=== PATIENT | female | born 1980 | race Two or more races ===

== ENCOUNTER 2020-03-27 08:49 | Emergency (ER) | payer SELFPAY ==
[~2020-03-27] VITALS: Ht 157.5 cm; Wt 64.0 kg
--- NOTE | 2020-03-27 09:36 | PHYS DOC ---
Past Medical History Past Medical History: No Pertinent History Past Surgical History: No Surgical History Smoking Status: Never Smoker General Adult EDM: Chief Complaint: VAGINAL BLEEDING HPI: HPI: Patient is a 39 year old G5, P4 female with last menstrual period about 9 weeks ago presents with light vaginal bleeding began yesterday and picked up more heavily today large amount of clots. Patient describes lower abdominal pain and cramping radiating to the back. No urinary complaints. No fevers no chills no vomiting no diarrhea. Pain is moderate in nature with no factors to make it worse or better. Review of Systems: Review of Systems: Constitutional: Denies fever or chills Eyes: Denies change in visual acuity HENT: Denies sore throat Respiratory: Denies cough or shortness of breath Cardiovascular: Denies chest pain or edema GI: Complains of lower abdominal pain but no vomiting or diarrhea : Denies dysuria but complains of vaginal bleeding with clots Musculoskeletal: Complains of lower back pain Integument: Denies rash Neurologic: Denies headache or focal weakness Psychiatric: Denies depression or anxiety Heart Score: Risk Factors: Risk Factors: DM, Current or recent (<one month) smoker, HTN, HLP, family history of CAD, obesity. Risk Scores: Score 0 - 3: 2.5% MACE over next 6 weeks - Discharge Home Score 4 - 6: 20.3% MACE over next 6 weeks - Admit for Clinical Observation Score 7 - 10: 72.7% MACE over next 6 weeks - Early Invasive Strategies Physical Exam: PE: Constitutional: Well developed, well nourished, no acute distress, non-toxic appearance. [] HENT: Normocephalic, atraumatic, bilateral external ears normal, no trismus, nose normal. [] Eyes: PERRLA, EOMI, conjunctiva normal, no discharge. [] Neck: Normal range of motion, no tenderness, supple, no stridor. [] Cardiovascular:Heart rate regular rhythm, Lungs & Thorax: No respiratory distress Abdomen: , soft, tender to palpate in the lower abdomen no masses, no pulsatile masses. [] exam: Diet Tech present moderate amount of bleeding with clots and what appears to be tissue. Cervix open Skin: Warm, dry, no erythema, no rash. [] Back: No tenderness, no CVA tenderness. [] Extremities: No tenderness, no cyanosis, no clubbing, ROM intact, no edema. [] Neurologic: Alert and oriented X 3, normal motor function, normal sensory function, no focal deficits noted. [] Psychologic: Affect normal, judgement normal, mood normal. [] Current Patient Data: Labs: Laboratory Tests Test 03/27/20 09:35 03/27/20 09:48 Urine Collection Type Unknown Urine Color Yellow Urine Clarity Clear Urine pH 6.5 Urine Specific [place] 1.020 Urine Protein Negative mg/dL Urine Glucose (UA) Negative mg/dL Urine Ketones (Stick) Negative mg/dL Urine Blood Negative Urine Nitrite Negative Urine Bilirubin Negative Urine Urobilinogen Dipstick 0.2 mg/dL Urine Leukocyte Esterase Negative Urine RBC Rare /HPF Urine WBC Rare /HPF Urine Squamous Epithelial Cells Few /LPF Urine Bacteria Few /HPF White Blood Count 6.7 x10^3/uL Red Blood Count 4.39 x10^6/uL Hemoglobin 10.8 g/dL Hematocrit 33.4 % Mean Corpuscular Volume 76 fL Mean Corpuscular Hemoglobin 25 pg Mean Corpuscular Hemoglobin Concent 32 g/dL Red Cell Distribution Width 17.3 % Platelet Count 243 x10^3/uL Neutrophils (%) (Auto) 67 % Lymphocytes (%) (Auto) 21 % Monocytes (%) (Auto) 7 % Eosinophils (%) (Auto) 5 % Basophils (%) (Auto) 1 % Neutrophils # (Auto) 4.5 x10^3/uL Lymphocytes # (Auto) 1.4 x10^3/uL Monocytes # (Auto) 0.5 x10^3/uL Eosinophils # (Auto) 0.3 x10^3/uL Basophils # (Auto) 0.0 x10^3/uL Maternal Serum HCG Beta Subunit 4749 mIU/mL Sodium Level 137 mmol/L Potassium Level 3.8 mmol/L Chloride Level 103 mmol/L Carbon Dioxide Level 26 mmol/L Anion Gap 8 Blood Urea Nitrogen 9 mg/dL Creatinine 0.6 mg/dL Estimated GFR (Cockcroft-Gault) 112.5 BUN/Creatinine Ratio 15 Glucose Level 89 mg/dL Calcium Level 8.6 mg/dL Total Bilirubin 0.3 mg/dL Aspartate Amino Transf (AST/SGOT) 16 U/L Alanine Aminotransferase (ALT/SGPT) 23 U/L Alkaline Phosphatase 55 U/L Total Protein 6.8 g/dL Albumin 3.3 g/dL Albumin/Globulin Ratio 0.9 Vital Signs: Vital Signs Date Time Temp Pulse Resp B/P (MAP) Pulse Ox O2 Delivery O2 Flow Rate FiO2 03/27/20 11:49 54 15 98/46 (63) 98 Room Air 03/27/20 09:12 98.8 61 16 112/56 (74) 98 Room Air 98.8 EKG: EKG: [] Radiology/Procedures: Radiology/Procedures: [][facility] [address] [place] [address] IMAGING REPORT Signed PATIENT: NUZHAT TOACCOUNT: [id number] : 1980 LOCATION: ER AGE: 39 SEX: F EXAM STATUS: REG ER ORD. PHYSICIAN: MARIA FERNANDA CRAMER MD REASON: VAGINAL BLEEDING PROCEDURE: OB <14 WKS W/TV OB ultrasound first trimester INDICATION: Vaginal bleeding. TECHNIQUE: Transabdominal and endovaginal ultrasound of the pelvis was performed. FINDINGS: Based on an LMP of 01/22/2020, gestational age by dates is 9 weeks and 2 days with an estimated delivery date of October 28, 2020. The uterus measures 10 cm x 7 cm x 7 cm. The endometrial stripe measures 1.2 cm. No intrauterine gestational sac is identified. The cervix is notable for a few nabothian cysts but no cervical masses identified. The right ovary measures 2.9 x 2.4 x 1.7 cm and shows normal blood flow. The left ovary measures 3.5 x 2.2 x 2.4 cm and contains a cystic structure with peripheral vascularity that could represent a corpus luteum. Otherwise unremarkable blood flow. No significant pelvic free fluid. IMPRESSION: No evidence of an intrauterine gestation and no adnexal mass suspicious for an ectopic . Recommend correlation with serial beta hCG measurements and follow-up pelvic ultrasound as clinically warranted. Cannot exclude completed spontaneous . Electronically signed by: Fazal Petty MD (03/27/2020 10:56 AM) [id number] DICTATED and SIGNED BY: FAZAL PETTY MD DATE: 03/27/20 1056 Course & Med Decision Making: Course & Med Decision Making Pertinent Labs and Imaging studies reviewed. (See chart for details) [] Reassessment at 11:45 AM. Patient denies any pain at this time and vaginal bleeding has slowed considerably. Patient is Rh+ ultrasound consistent with complete . Exam is as well as a clear out her vaginal vault. 39 male presents with signs and symptoms consistent with spontaneous . Patient feels much better after getting her vaginal vault. Bleeding is minimalized and abdominal pain is much better. I appear to remove the remnants of products of conception during my pelvic exam. Per MIPS measures I check a test and ultrasound and she is Rh+ and vaginal bleeding patient Dragon Disclaimer: Dragon Disclaimer: This electronic medical record was generated, in whole or in part, using a voice recognition dictation system. Departure Departure Impression: Primary Impression: Complete Disposition: HOME, SELF-CARE Condition: STABLE Referrals: NO PCP (PCP) BJ DEL CASTILLO MD 2-3 DAYS Patient Instructions: Miscarriage Additional Instructions: EMERGENCY DEPARTMENT GENERAL DISCHARGE INSTRUCTIONS THANK YOU for coming to [facility] Emergency Department (ED) today and trusting us with your care. We trust that you had a positive experience in our Emergency Department. If you wish to speak to the department Management you can contact the supervisor stitching department at . YOUR FOLLOW UP INSTRUCTIONS ARE FOLLOWS: Do you have a private doctor? If you do not have a private doctor, please ask for a resource list of physicians or clinics that may be able to assist you with follow up care. The Emergency Physician has interpreted your x-rays. The X-ray specialist will also review them. If there is a change in the findings you will be notified in 48 hours when at all possible. A lab test or lab culture may have been done, your results will be reviewed and you will be notified if you need a change in treatment. ADDITIONAL INSTRUCTIONS AND INFORMATION Your care today has been supervised by a physician who is specially trained in emergency care. Many problems require more than one evaluation for a complete diagnosis and treatment. We recommend that you schedule your follow up appointment as recommended to ensure complete treatment of your illness or injury. If you are unable to obtain follow up care and continue to have a problem, or if your condition worsens we recommend that you return to the ED. We are not able to safely determine your condition over the phone nor are we able to give sound medical advice over the phone. For these safety reasons, if you call for medical advice we will ask you to come to the ED for further evaluation If you have any questions regarding these discharge instructions please call the ED at . SAFETY INFORMATION In the interest of safety, wellness, and injury prevention; we encourage you to wear your seatbelt, if you smoke; quit smoking, and we encourage your family to use protective helmet for bicycling and other sporting events that present an increased risk for head injury. IF YOUR SYMPTOMS WORSEN OR NEW SYMPTOMS DEVELOP, OR YOU HAVE CONCERNS ABOUT YOUR CONDITION; OR IF YOUR CONDITION WORSENS WHILE YOU ARE WAITING FOR YOUR FOLLOW UP APPOINTMENT; EITHER CONTACT YOUR PRIMARY CARE DOCTOR, THE PHYSICIAN WHOSE NAME AND NUMBER YOU WERE GIVEN, OR RETURN TO THE ED IMMEDIATELY. Justicifation of Admission Dx: Justifications for Admission: Justification of Admission Dx: N/A MARIA FERNANDA CRAMER MD Mar 27, 2020 09:36
[2020-03-27 09:47] LABS: BILIRUBIN,URINE NEGATIVE (NEG); CLARITY,URINE CLEAR; COLOR,URINE YELLOW; NITRITE,URINE NEGATIVE (NEG); PH,URINE 6.5 (<5.0-8.0); PROTEIN,URINE NEGATIVE (NEG-TRACE); UROBILINOGEN,URINE 0.2 mg/dL (0.2 mg/dL)
[2020-03-27 10:07] LABS: CALCIUM 8.6 mg/dL (8.5-10.1); CREATININE 0.6 mg/dL (0.6-1.0); GFR 112.5; POTASSIUM 3.8 mmol/L (3.5-5.1)
[2020-03-27 10:13] LABS: ALBUMIN 3.3 g/dL (3.4-5.0); ALBUMIN/GLOBULIN RATIO 0.9 (1.0-1.7); TOTAL BILIRUBIN 0.3 mg/dL (0.2-1.0); TOTAL PROTEIN 6.8 g/dL (6.4-8.2)
[2020-03-27 10:15] LABS: BACTERIA,URINE FEW /HPF (0-FEW); RBC,URINE RARE /HPF (0-2); SQUAMOUS EPITHELIAL CELL,UR FEW /LPF; WBC,URINE RARE /HPF (0-4)
[2020-03-27 10:15] LABS: BASO % 1 % (0-3); EOS # 0.3 x10^3/uL (0.0-0.7); EOS % 5 % (0-3); HEMATOCRIT 33.4 % (36.0-47.0); HEMOGLOBIN 10.8 g/dL (12.0-15.5); LYMPH # 1.4 x10^3/uL (1.0-4.8); LYMPH % 21 % (24-48); MEAN CORPUSCULAR HEMOGLOBIN 25 pg (25-35); MEAN CORPUSCULAR HGB CONC 32 g/dL (31-37); MEAN CORPUSCULAR VOLUME 76 fL (79-100); MONO # 0.5 x10^3/uL (0.0-1.1); MONO % 7 % (0-9); NEUT # 4.5 x10^3/uL (1.8-7.7); NEUT % 67 % (31-73); PLATELET COUNT 243 x10^3/uL (140-400); RED BLOOD COUNT 4.39 x10^6/uL (3.50-5.40); RED CELL DISTRIBUTION WIDTH 17.3 % (11.5-14.5); WHITE BLOOD COUNT 6.7 x10^3/uL (4.0-11.0)
--- NOTE | 2020-03-27 10:59 | RAD ---
OB ultrasound first trimester INDICATION: Vaginal bleeding. TECHNIQUE: Transabdominal and endovaginal ultrasound of the pelvis was performed. FINDINGS: Based on an LMP of 01/22/2020, gestational age by dates is 9 weeks and 2 days with an estimated delivery date of October 28, 2020. The uterus measures 10 cm x 7 cm x 7 cm. The endometrial stripe measures 1.2 cm. No intrauterine gestational sac is identified. The cervix is notable for a few nabothian cysts but no cervical masses identified. The right ovary measures 2.9 x 2.4 x 1.7 cm and shows normal blood flow. The left ovary measures 3.5 x 2.2 x 2.4 cm and contains a cystic structure with peripheral vascularity that could represent a corpus luteum. Otherwise unremarkable blood flow. No significant pelvic free fluid. IMPRESSION: No evidence of an intrauterine gestation and no adnexal mass suspicious for an ectopic . Recommend correlation with serial beta hCG measurements and follow-up pelvic ultrasound as clinically warranted. Cannot exclude completed spontaneous . Electronically signed by: Milan Petty MD (03/27/2020 10:56 AM) [id number]
[2020-03-27 11:49] VITALS: BP 98/46
[2020-03-28 22:09] LABS: GC PROBE Negative (Negative)
--- NOTE | 2020-03-29 18:06 | PATHOLOGY ---
[facility] Accession Number: [id number] . 01 Material submitted: . product of conception - PRODUCTS OF CONCEPTION . 02 Diagnosis: Tissue designated "products of conception": - Products of conception, comprised of immature chorionic villi showing mild hydropic degenerative changes, and segments of decidual tissue showing focal hemorrhage, necrosis, and acute inflammation. (JPM:lace pinner; 03/29/2020) MBR 03/29/2020 1556 Local . 02 Electronically signed: . Ken Rodrigez MD, Pathologist NPI- [id number] . 01 Gross description: . The specimen is received in formalin, labeled "Catherine Rosales, products of conception" and consists of esposito-weber soft to spongy tissue and blood clot measuring 8.3 x 6.0 x 2.7 cm. No parts or vesicular structures are identified. De Ionizer Operator tissue is submitted in A1-A3. (SDY; 03/28/2020) SYU/SYU 03/28/2020 1317 Local . 02 Pathologist provided ICD-10: N93.9, O02.89 . 02 CPT . 829819 Specimen Comment: A courtesy copy of this report has been sent to [phone] Specimen Comment: Report sent to Performed at: 01 [facility] [address], [place] [id number] MD Hermelindo De Leon MD Phone: [phone] Performed at: 02 [facility] [address] [place], [place] [id number] MD Ken Rodrigez MD Phone: [phone]
== END 2020-03-27 12:08 | disposition home or self-care (01) ==
LOC: ER 08:49
DX: O03.9 Complete or unspecified spontaneous abortion without complication (principal); R10.30 Lower abdominal pain, unspecified; Z3A.09 9 weeks gestation of pregnancy
CPT/HCPCS: 36415; 51701; 76801; 76817; 80053; 81001; 84702; 85025; 86901; 87491; 87591; 99284; Q0111

== ENCOUNTER 2021-03-16 07:12 | Observation (INO) | payer SELFPAY ==
[2021-03-16 09:55] LABS: BILIRUBIN,URINE NEGATIVE (NEG); CLARITY,URINE CLEAR; COLOR,URINE YELLOW; NITRITE,URINE NEGATIVE (NEG); PH,URINE 7.5 (<5.0-8.0); PROTEIN,URINE NEGATIVE (NEG-TRACE); UROBILINOGEN,URINE 0.2 mg/dL (0.2 mg/dL)
[2021-03-16 10:26] LABS: BACTERIA,URINE FEW /HPF (0-FEW); RBC,URINE 0 /HPF (0-2)
== END 2021-03-16 10:10 | disposition home or self-care (01) ==
LOC: 3 SO LND 07:12
PROVIDERS: ADMIT Obstetrics & Gynecology; ATTEND Obstetrics & Gynecology
DX: O36.8120 Decreased fetal movements, second trimester, not applicable or unspecified (principal); Z3A.20 20 weeks gestation of pregnancy
CPT/HCPCS: 81001; G0378; G0379